=== PATIENT | male | born 1940 | race Caucasian/White ===

== ENCOUNTER 2020-10-21 12:15 | Outpatient (CLI) | payer MEDICARE, SELFPAY ==
--- NOTE | ~2020-10-21 | XR_ITS ---
EXAMINATION: XR ankle LT min 3V EXAM DATE: 10/21/2020 12:27 INDICATION: Left ankle pain, no injury. TECHNIQUE: Left ankle frontal, lateral and oblique projections obtained and reviewed. There is no pr ior study for comparison. FINDINGS: There is severe loss of the left ankle joint space at the medial aspect of the talar dome c ausing significant lateral angulation of the foot with respect to the ankle. There is also severe art hritis at the subtalar joint with some collapse of the talus. Evidence of pes planus and advanced mid foot osteoarthritis as well. Moderate-sized calcaneal spurs. There are no acute fractures identified . No radiopaque foreign bodies identified. There is soft tissue swelling over the ankle. IMPRESSION: Advanced left ankle, hind and midfoot arthritis. Pes planus. Reviewed, dictated and finalized at location B. [facility] [employer]
== END 2020-10-21 12:16 | disposition home or self-care (01) ==
LOC: ANHBWCIMG 12:16
PROVIDERS: PCP Internal Medicine; Visit Provider Orthopaedic Surgery
DX: M25.572 Pain in left ankle and joints of left foot (principal); M13.872 Other specified arthritis, left ankle and foot; M21.42 Flat foot [pes planus] (acquired), left foot
CPT/HCPCS: 73610

== ENCOUNTER 2023-09-13 13:25 | Outpatient (CLI) | payer MEDICARE, SELFPAY ==
--- NOTE | ~2023-09-13 | XR_ITS ---
XR ankle LT min 3V DATE: 09/13/2023 13:36 INDICATION: Left ankle pain TECHNIQUE: 4 views COMPARISON: None FINDINGS: Pes planus. Prominent plantar and posterior calcaneal enthesopathy. 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 There is prominent approximately 29 de grees apex medial angulation at the tibiotalar joint with virtual obliteration of the lateral aspect of the tibiotalar joint and prominent widening of the medial aspect of the joint. There is prominent periarticular spurring at the tibiotalar joint. No apparent recent fracture or dislocation of the ankle is evident. 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 [facility] IMPRESSION: Severe osteoarthritic change in angulation deformity at the tibiota lar joint Prominent plantar and posterior calcaneal enthesopathy Pes planus
== END 2023-09-13 13:26 | disposition home or self-care (01) ==
LOC: ANHBWCIMG 13:27
PROVIDERS: PCP Internal Medicine; Visit Provider Orthopaedic Surgery
DX: M25.572 Pain in left ankle and joints of left foot (principal); M19.072 Primary osteoarthritis, left ankle and foot; M77.32 Calcaneal spur, left foot; M21.42 Flat foot [pes planus] (acquired), left foot
CPT/HCPCS: 73610